=== PATIENT | male | born 2000 | race Caucasian/White ===

== ENCOUNTER 2024-07-16 21:50 | Inpatient (IN) | payer OTHER ==
[~2024-07-16] VITALS: Ht 172.7 cm; Wt 58.1 kg
[2024-07-16] MEDS: GLUCAGON,HUMAN RECOMBINANT 1 MG VIAL IVP ONE (22:30)
[2024-07-16] MEDS ORDERED: ONDANSETRON 4 MG/2 ML VIAL ONE (22:30)
[2024-07-16] MEDS: ONDANSETRON 4 MG/2 ML VIAL IV ONE (22:30)
[2024-07-16] MEDS ORDERED: GLUCAGON,HUMAN RECOMBINANT 1 MG VIAL ONE (22:30)
[2024-07-16 23:14] LABS: BASOPHILS # (AUTO) 0.1 K/UL (0.0-0.2); EOSINOPHILS # (AUTO) 0.1 K/uL (0.0-0.7); EOSINOPHILS % (AUTO) 0.8 % (0.0-7.0); HEMATOCRIT 37.3 % (36.7-47.1); LYMPHOCYTES # (AUTO) 1.2 K/uL (0.8-4.8); LYMPHOCYTES % (AUTO) 17.7 % (20.5-51.5); MEAN CORPUSCULAR HEMOGLOBIN 26.6 uug (23.8-33.4); MEAN CORPUSCULAR HGB CONC 32 g/dL (32.5-36.3); MEAN CORPUSCULAR VOLUME 82.4 fL (73.0-96.2); MONOCYTES # (AUTO) 0.5 K/uL (0.1-1.30); MONOCYTES % (AUTO) 6.8 % (0.0-11.0); NEUTROPHILS # (AUTO) 4.9 K/uL (1.8-8.9); NEUTROPHILS % (AUTO) 73.7 % (38.5-71.5); PLATELET COUNT (AUTO) 288 K/uL (152-348); RED BLOOD CELL COUNT(AUTO) 4.52 MIL/uL (4.06-5.63); RED CELL DISTRIBUTION WIDTH 22.1 % (12.1-16.2); WHITE BLOOD COUNT (AUTO) 6.7 K/uL (3.6-10.2)
[2024-07-16 23:16] LABS: DIFFERENTIAL COMMENT 1
[2024-07-16] MEDS ORDERED: METOCLOPRAMIDE HCL 10 MG/2 ML VIAL ONE (23:18)
[2024-07-16] MEDS ORDERED: diphenhydrAMINE 50 MG/1 ML VIAL ONE (23:18)
[2024-07-16] MEDS: diphenhydrAMINE 50 MG/1 ML VIAL IV ONE (23:20)
[2024-07-16] MEDS: METOCLOPRAMIDE HCL 10 MG/2 ML VIAL IV ONE (23:20)
[2024-07-16] MEDS: IV NORMAL SALINE 500 ML BAG IV ONE (23:20)
[2024-07-16 23:21] LABS: CREATININE 1.2 mg/dL (0.6-1.3); POTASSIUM 3.5 mmol/L (3.5-5.1)
[2024-07-16 23:27] LABS: ALBUMIN 3.4 g/dL (3.4-5.0); BILIRUBIN,TOTAL 0.2 mg/dL (0.2-1.0); MAGNESIUM 1.9 mg/dL (1.8-2.4); TOTAL PROTEIN, SERUM 8.4 g/dL (6.4-8.2)
[2024-07-16 23:31] LABS: LACTIC ACID 3.6 mmol/L (0.4-2.0)
[2024-07-16 23:37] LABS: C-REACTIVE PROTEIN 0.49 mg/dL (0.00-0.30)
[2024-07-17] MEDS ORDERED: REMEDY ESSENTIAL ZINC PASTE 113 GM TP PRN (06:00)
[2024-07-17 08:24] LABS: BASOPHILS % (AUTO) 0.5 % (0.0-2.0); EOSINOPHILS % (AUTO) 0.1 % (0.0-7.0); HEMOGLOBIN 11.4 g/dL (12.5-16.3); LYMPHOCYTES % (AUTO) 10.5 % (20.5-51.5); MEAN CORPUSCULAR HEMOGLOBIN 27.2 uug (23.8-33.4); MEAN CORPUSCULAR HGB CONC 33 g/dL (32.5-36.3); MEAN CORPUSCULAR VOLUME 83.3 fL (73.0-96.2); MONOCYTES # (AUTO) 0.4 K/uL (0.1-1.30); MONOCYTES % (AUTO) 4.3 % (0.0-11.0); NEUTROPHILS # (AUTO) 7.7 K/uL (1.8-8.9); NEUTROPHILS % (AUTO) 84.6 % (38.5-71.5); PLATELET COUNT (AUTO) 283 K/uL (152-348); RED BLOOD CELL COUNT(AUTO) 4.21 MIL/uL (4.06-5.63); RED CELL DISTRIBUTION WIDTH 22.8 % (12.1-16.2); WHITE BLOOD COUNT (AUTO) 9.1 K/uL (3.6-10.2)
[2024-07-17 08:34] LABS: DIFFERENTIAL COMMENT 1
[2024-07-17 08:56] LABS: CALCIUM 8.8 mg/dL (8.5-10.1); CREATININE 0.8 mg/dL (0.6-1.3); MAGNESIUM 1.9 mg/dL (1.8-2.4); PHOSPHOROUS 4.2 mg/dL (2.5-4.9); POTASSIUM 3.8 mmol/L (3.5-5.1)
[2024-07-17] MEDS ORDERED: PANTOPRAZOLE SODIUM 40 MG VIAL ONE (08:57)
[2024-07-17] MEDS: PANTOPRAZOLE SODIUM 40 MG VIAL IV SCH (09:01)
[2024-07-17 16:11] VITALS: BP 106/61; TEMP 98.2; O2SAT 98
[2024-07-17] MEDS ORDERED: MIDAZOLAM HCL 2 MG/2 ML VIAL ONE (17:56)
[2024-07-17] MEDS ORDERED: PROPOFOL 200 MG/20 ML BOTTLE ONE (18:00)
[2024-07-17 20:00] VITALS: BP 94/54; TEMP 97.7; O2SAT 97
[2024-07-17] MEDS: IV NS 1000 ML 1,000 ML IV PRN (20:14)
[2024-07-17 22:01] VITALS: BP 97/57; O2SAT 100
[2024-07-18 05:35] VITALS: BP 102/47; TEMP 97.8; O2SAT 95
[2024-07-18] MEDS: ONDANSETRON 4 MG/2 ML VIAL IV PRN (06:16)
[2024-07-18] MEDS ORDERED: KETOROLAC TROMETHAMINE 15 MG INJ IVP PRN ×2 (07:15→07:45)
[2024-07-18 07:44] LABS: BASOPHILS % (AUTO) 0.5 % (0.0-2.0); EOSINOPHILS # (AUTO) 0.1 K/uL (0.0-0.7); EOSINOPHILS % (AUTO) 1.1 % (0.0-7.0); HEMOGLOBIN 11.2 g/dL (12.5-16.3); LYMPHOCYTES % (AUTO) 18.8 % (20.5-51.5); MEAN CORPUSCULAR HEMOGLOBIN 27.2 uug (23.8-33.4); MEAN CORPUSCULAR HGB CONC 33 g/dL (32.5-36.3); MEAN CORPUSCULAR VOLUME 82.7 fL (73.0-96.2); MONOCYTES # (AUTO) 0.6 K/uL (0.1-1.30); MONOCYTES % (AUTO) 11.5 % (0.0-11.0); NEUTROPHILS # (AUTO) 3.6 K/uL (1.8-8.9); NEUTROPHILS % (AUTO) 68.1 % (38.5-71.5); PLATELET COUNT (AUTO) 265 K/uL (152-348); RED BLOOD CELL COUNT(AUTO) 4.12 MIL/uL (4.06-5.63); WHITE BLOOD COUNT (AUTO) 5.3 K/uL (3.6-10.2)
[2024-07-18 07:48] LABS: DIFFERENTIAL COMMENT 1
[2024-07-18 07:59] LABS: CALCIUM 8.5 mg/dL (8.5-10.1); CREATININE 0.9 mg/dL (0.6-1.3); MAGNESIUM 1.8 mg/dL (1.8-2.4); PHOSPHOROUS 3.2 mg/dL (2.5-4.9); POTASSIUM 3.5 mmol/L (3.5-5.1)
[2024-07-18] MEDS ORDERED: ACETAMINOPHEN 650 MG/20.3 ML LIQUID UDC PO PRN (08:15)
[2024-07-18] MEDS ORDERED: ACETAMINOPHEN 325 MG TABLET PO PRN (08:30)
[2024-07-18 08:39] LABS: *BILIRUBIN,URIN NEGATIVE (NEGATIVE); *BLOOD, URINE NEGATIVE (NEGATIVE); *CLARITY,URINE CLEAR (CLEAR); *COLOR,URINE YELLOW (YELLOW); *KETONES,URINE NEGATIVE (NEGATIVE); *PROTEIN,URINE NEGATIVE (NEGATIVE); *UROBILINOGEN,URINE 0.2 E.U./dl (NORMAL); LEUKOCYTE ESTERASE ,URINE NEGATIVE (NEGATIVE); NITRITE, URINE NEGATIVE (NEGATIVE); UGLUCOSE NEGATIVE (NEGATIVE)
[2024-07-18] MEDS: ACETAMINOPHEN 650 MG/20.3 ML LIQUID UDC PO PRN (10:51)
[2024-07-18 11:23] VITALS: BP 92/53; TEMP 97.7; O2SAT 97
[2024-07-18] MEDS ORDERED: ONDA4TAB11 PO (12:13)
[2024-07-18] MEDS ORDERED: PANT20TA2 PO (12:13)
== END 2024-07-18 14:10 | disposition home or self-care (01) | DRG 254 ==
LOC: ER 21:50 → UNDOADMIN 07-17 09:06 → MEDSURG3 07-17 09:06
PROVIDERS: ADMIT Nurse Practitioner Family; ATTEND Nurse Practitioner Family
PROC: 0DC58ZZ Extirpation of Matter from Esophagus, Via Natural or Artificial Opening Endoscopic (ICD-10-PCS; principal; 2024-07-17)
DX: T18.128A Food in esophagus causing other injury, initial encounter (principal); E87.20 Acidosis, unspecified; K29.70 Gastritis, unspecified, without bleeding; Q90.9 Down syndrome, unspecified; Z88.6 Allergy status to analgesic agent; W44.F3XA Food entering into or through a natural orifice, initial encounter; Y93.89 Activity, other specified; Y92.019 Unspecified place in single-family (private) house as the place of occurrence of the external cause; D64.9 Anemia, unspecified
CPT/HCPCS: 36415; 71045; 83605; 83690; 83735; 84100; 85025; 86140; G0378; J1200; J1610; J2250; J2405; J2470; J2765; J3490; J7040